=== PATIENT | female | born 1935 | race Caucasian/White ===

== ENCOUNTER 2019-10-31 12:53 | Outpatient (CLI) | payer MEDICARE, SELFPAY ==
--- NOTE | ~2019-10-31 | US_ITS ---
EXAMINATION: US carotid duplex BI DATE: 10/31/2019 14:41 INDICATION: Retinal artery occlusion. Carotid stenosis. TECHNIQUE: Grayscale, color Doppler, and pulsed Doppler images of the cervical carotid arteries were obtained. The degree of vessel stenosis is placed in one of the following categories: normal, <50%, 5 0-69%, >=70% but less than near-occlusion, near-occlusion, or total occlusion. Note that percent sten osis relative to normal distal artery lumen diameter is indirectly measured from velocity measurement s as described by Driss, et al. Radiology 2003; 229:340-346. Notes: Normal: Peak systolic velocity <125 centimeters/sec and no plaque <50%. Peak systolic velocity <125 ( EDV <40; ICA/CCA PSV ratio <2.0; used these factors only a tandem lesions or low cardiac output or co ntralateral disease) 50-69 %: PSV 125-230 (EDV 40-100; ratio 2-4) >= 70% but less than near occlusion: PSV greater than 230 (EDV > 100; ratio> 4.0) Near Occlusion: PSV that is variable; markedly narrowed lumen Occlusion: Absent flow on color/spectral Doppler and no lumen on josé scale. COMPARISON: None. FINDINGS: RIGHT: The right common carotid artery (CCA) peak systolic velocity (PSV) is 79 cm/s. The right internal car otid artery (ICA) PSV is 56 cm/s. The right ICA end-diastolic velocity (EDV) is 21 cm/s. The right IC A/CCA PSV ratio is 0.7. The external carotid artery (ECA) PSV is 63 cm/s. There is antegrade flow in the right vertebral artery. LEFT: The left CCA PSV is 67 cm/s. The left ICA PSV is 94 cm/s. The left ICA EDV is 26 cm/s. The left ICA/C CA PSV ratio is 1.4. The ECA PSV is 83 cm/s. There is antegrade flow in the left vertebral artery. IMPRESSION: 1. Less than 50% stenosis in the right internal carotid artery by sonographic criteria. 2. Less than 50% stenosis in the left internal carotid artery by sonographic criteria. Reviewed, dictated and finalized at location A. IMPRESSION: 1. Less than 50% stenosis in the right internal carotid artery by sonographic c kevon. 2. Less than 50% stenosis in the left internal carotid artery by sonographic adrianna orthman.
== END 2019-10-31 12:54 | disposition home or self-care (01) ==
PROVIDERS: Visit Provider Internal Medicine Cardiovascular Disease
DX: H34.211 Partial retinal artery occlusion, right eye (principal); H53.8 Other visual disturbances; I25.10 Atherosclerotic heart disease of native coronary artery without angina pectoris; E78.00 Pure hypercholesterolemia, unspecified; I65.23 Occlusion and stenosis of bilateral carotid arteries
CPT/HCPCS: 93880

== ENCOUNTER 2024-05-09 07:27 | Emergency (ER) | payer MEDICARE, SELFPAY ==
[2024-05-09] VITALS (17 sets, daily range): BP systolic 130–190; BP diastolic 67–129; PULSE 52–62; RESP 12–20; TEMP 36.7; O2SAT 99–100
--- NOTE | ~2024-05-09 | XR_ITS ---
EXAMINATION: XR chest 1V portable DATE: 05/09/2024 08:39 INDICATION: Palpitations. TECHNIQUE: A single frontal view of the chest was obtained. COMPARISON: Chest 2 views 02/10/2019 FINDINGS: There is no pneumonia, pleural effusion, or pneumothorax. Cardiomegaly is noted. 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 IMPRESSION: 1. Cardiomegaly. Reviewed, dictated and finalized at location A. IMPRESSION: 1. Cardiomegaly.
--- NOTE | 2024-05-09 07:32 | ECG_ITS ---
Test Date: 2024-05-09 07:35:45 Measurements Intervals [place] Rate: 58 P: 16 NV: 198 QRS: -32 QRSD: 88 T: 18 QT: 417 QTc: 410 Interpretive Statements SINUS BRADYCARDIA LEFT AXIS DEVIATION [QRS AXIS < -30] ABNORMAL ECG No previous ECG available for comparison Electronically Signed On 05-09-2024 13:59:23 CDT by Atilio Mckenzie M.D.
[2024-05-09 08:06] LABS: Basophils Percent Auto 0.7 % (0.2-1.2); Eosinophils Percent Auto 0.7 % (0-4.4); Hematocrit 39.9 % (37.0-47.0); Hemoglobin 12.6 g/dL (12.0-15.0); Immature Granulocyte Absolute 0.01 K/mm3 (0.00-0.031); Immature Granulocyte Percent A 0.2 % (0-0.5); Immature Platelet Fraction Pct 6.8 % (0.9-11.2); Lymphocytes Absolute Auto 0.86 K/mm3 (0.9-3.2); Lymphocytes Percent Auto 15.6 % (18.3-44.2); Mean Corpuscular HGB Conc 31.6 g/dl (32-36); Mean Corpuscular Hemoglobin 29.6 pg (26-34); Mean Corpuscular Volume 93.7 fl (80-100); Mean Platelet Volume 11.5 fl (7.4-10.4); Monocytes Absolute Auto 0.6 K/mm3 (0.1-0.6); Monocytes Percent Auto 10.2 % (2.6-8.5); Neutrophils Percent Auto 72.6 % (45.5-73.1); Platelet Count Result 132 k/mm3 (150-375); Red Blood Count 4.26 M/mm3 (4.2-5.4); Red Cell Distribution Width 14.8 % (11.5-14.5); White Blood Count 5.5 K/mm3 (4.5-10.0)
--- NOTE | 2024-05-09 08:06 | ED.ARRPALP ---
HPI - Arrhythmia/Palpitations General Chief Complaint: Arrhythmia/Palpitations Stated Complaint: palpitations Time Seen by Provider: 05/09/24 07:49 Source: patient, family (son) and RN notes reviewed Mode of arrival: EMS Limitations: no limitations History of Present Illness HPI narrative: Patient presents with report of palpitations. States she woke up around 3 or 3:30 and felt like she had a rapid heart rate. History of HTN (as well as gatric ulcer and Alzheimer). Her initial SBP was 160 then 166 then >200. Normally takes her lisinopril and metoprolol at 9:30am but took 1/2 dose of each with no relief in her hypertension. No dose changes recently. Denies any LE edema but does report R leg varicose veins; states she takes HCTZ when there is hot weather. She states before it felt like she was having fast beats but now they don't necessarily feel fast but she is hyperaware of her heart beating. Blood glucose for EMS was 84. They reported PACs on their radio report based on 12 lead. Her PCP is Destinee Ely. Many of her other physicians have retired recently so she is trying to establish with new ones. She has an upcoming appointment with cardiology. It was supposed to be in May but got rescheuled for July. Either Dr Llamas or Dr Soriano. Not on anticoagulation. Denies chest pain or shortness of breath. Earlier she felt a pressure at the back of her head but not currently and not described as painful. Occaisonally gets this with her allergies. She does report being under a lot of stressors in her family recently. States the rapid heart rate had never happened before except it has been occurring over the past week. Had previously worn a Holter/event monitor many years ago. WHen her symptoms were occuring, she felt like she could feel them when she put her finger in suprasternal notch. Had bypass in 1999 for PA and blockages and this runs on both paternal and maternal sides of family. Related Data Home Medications ?Medication ?Instructions ?Recorded ?Confirmed ?Last Taken ?Type cholecalciferol (vitamin D3) 25 25 mcg PO DAILY 11/19/21 04/13/24 Unknown History mcg (1,000 unit) tablet fexofenadine 60 mg tablet (Allergy 60 mg PO DAILY 11/19/21 04/13/24 Unknown History Relief (fexofenadine)) [id number] 250 mg-dha 90 1 cap PO DAILY 11/19/21 04/13/24 Unknown History mg-epa 160 gk-mamf-fabh-zeax capsule (Ocuvite Adult 50 Plus) simethicone 125 mg chewable tablet 125 mg PO TID PRN 11/19/21 04/13/24 Unknown History (Gas-X Extra Strength) ferrous sulfate 325 mg (65 mg 325 mg PO WEEKLY 09/08/22 04/13/24 Unknown History iron) tablet metoprolol tartrate 25 mg tablet 25 mg PO BID 11/26/22 04/13/24 Unknown History levothyroxine 50 mcg tablet 50 mcg PO DAILY 10/27/23 04/13/24 Unknown History Allergies Allergy/AdvReac Type Severity Reaction Status Date / Time erythromycin base Allergy Unknown unk Verified 04/13/24 14:33 ezetimibe Allergy Unknown unk Verified 04/13/24 14:33 simvastatin (Vytorin) Allergy Unknown body Verified 04/13/24 14:33 swelling and pain Sulfa (Sulfonamide Allergy Unknown unk Verified 04/13/24 14:33 Antibiotics) aspirin Allergy Unknown Verified 04/13/24 14:33 ibuprofen Allergy unk Verified 04/13/24 14:33 Dubois AdvReac Intermediate Confusion Uncoded 04/13/24 14:33 PMFSH Past Medical History Medical History Gastric ulcer Rapid heart rate Essential (primary) hypertension Memory loss Mixed hyperlipidemia Surgical History Surgical History Hx of tonsillectomy H/O: hysterectomy Hx of CABG 1999; for PA and blockages H/O hernia repair Hx of cholecystectomy H/O cataract extraction History of bowel resection Family History Family History Mother Family history of Alzheimer's disease, Onset Age: 92 Family history of cardiovascular disease Sibling Family history of cardiovascular disease Other Cerebrovascular accident Family history of coronary artery disease Hypertension No family history of malignant neoplasm Social History Social History Smoking status: Never smoker Alcohol intake: never Substance use: never Substance use type: does not use Lack of Transportation: No Lack of Food: Never True Current Housing: I Have Housing Concerned About Future Housing: No Difficulty Paying Gas/Electric Bills: No Difficulty Paying for Meds: No Currently Unemployed: No Education: Bachelor's Degree Difficulty w/ Childcare or Family Care: No Living arrangements: with family Additional living arrangements comments: son Occupation/Education: retired Exam Narrative: GENERAL: Well-appearing, well-nourished, and in no acute distress. HEAD: Normocephalic, atraumatic. EYES: Non injected, non icteric ENT: Nares clear, no rhinorrhea or epistaxis. NECK: Supple. CHEST: Speaking in full sentences. No respiratory distress. Lungs clear to auscultation bilaterally HEART: Bradycardic rate and rhythm. There does appear to be a slight delay between S1 and S2 but without appreciable murmur. No significant JVD but prominent heart beat in neck ABDOMEN: Soft, nondistended. EXTREMITIES: Normal range of motion. No lower extremity edema. SKIN: Warm, dry, no rash. NEURO: No focal deficits. Alert and oriented x3. PSYCH: Normal mood and affect. Course Vital Signs Vital signs: Vital Signs Temperature 98.0 F 05/09/24 07:33 Pulse Rate 58 L 05/09/24 07:33 Respiratory Rate 16 05/09/24 07:33 Blood Pressure 190/67 H 05/09/24 07:33 Pulse Oximetry 100 05/09/24 07:33 Oxygen Delivery Room Air 05/09/24 07:33 Temperature 98.0 F 05/09/24 07:33 Pulse Rate 57 L 05/09/24 10:45 Respiratory Rate 17 05/09/24 10:45 Blood Pressure 151/79 H 05/09/24 11:16 Pulse Oximetry 100 05/09/24 10:31 Oxygen Delivery Room Air 05/09/24 07:33 MDM - Arrhythmia/Palpitations MDM Narrative Medical decision making narrative: Patient presents with report of palpitations/rapid heart rate. In the emergency department she is afebrile with vital signs notable for hypertension as well as bradycardia. She has mild thrombocytopenia. EMS had noted frequent PACs on their radio report, no EKG/12 lead transmitted her this is not present on EKG your on monitoring analyst on my bedside assessment. Rest of work up generally unremarkable. Cardiology personnel were contacted to equip patient with an event monitor for 7 days to identify if ping able to be identified. Discharged in stable condition and advised to follow up and given return precautions. She is provided cardiology referral. Differential Diagnosis Differential diagnosis: Likely palpitations, anxiety, sinus tachycardia, artial fibrillation, artial flutter, ventricular premature beats, supraventricular tachycardia, ventricular tachycardia and other (aortic stenosis; psychogenic; PACs; electrolyte abnormalities) Lab Data Attestation: I reviewed the patient's lab results. 05/09/24 07:58 05/09/24 07:58 Labs: Lab Results 05/09/24 Range/Units 07:58 WBC 5.5 (4.5-10.0) K/mm3 RBC 4.26 (4.2-5.4) M/mm3 Hgb 12.6 (12.0-15.0) g/dL Hct 39.9 (37.0-47.0) % MCV 93.7 (80-100) fl MCH 29.6 (26-34) pg MCHC 31.6 L (32-36) g/dl RDW 14.8 H (11.5-14.5) % Plt Count 132 L (150-375) k/mm3 MPV 11.5 H (7.4-10.4) fl Immature Gran % (Auto) 0.2 (0-0.5) % Neut % (Auto) 72.6 (45.5-73.1) % Lymph % (Auto) 15.6 L (18.3-44.2) % Prentiss % (Auto) 10.2 H (2.6-8.5) % Eos % (Auto) 0.7 (0-4.4) % Baso % (Auto) 0.7 (0.2-1.2) % Lymph # (Auto) 0.86 L (0.9-3.2) K/mm3 Prentiss # (Auto) 0.6 (0.1-0.6) K/mm3 Eos # (Auto) 0.0 (0-0.3) K/mm3 Baso # (Auto) 0.0 (0.0-0.1) K/mm3 Abs Immat Gran (auto) 0.01 (0.00-0.031) K/mm3 Absolute Neuts (auto) 4.0 (1.3-6.7) K/mm3 Absolute Nucleated RBC 0.000 (0.0-0.012) K/mm3 Nucleated RBC % 0.0 (0.0-0.2) % % Immature Plt Fraction 6.8 (0.9-11.2) % PT 14.3 (11.1-14.7) Seconds INR 1.1 APTT 28.5 (22.3-36.8) Seconds Sodium 139 (137-145) mmol/L Potassium 3.9 (3.4-5.0) mmol/L Chloride 103 (98-107) mmol/L Carbon Dioxide 29 (22-30) mmol/L Anion Gap 7 (4-12) mmol/L BUN 19 H (7-17) mg/dL Creatinine 0.54 L (0.7-1.0) mg/dL Estim Creat Clear Calc 49 ml/min Estimated GFR > 60 (59 - ) Glucose 107 (65-110) mg/dL Calcium 8.9 (8.4-10.2) mg/dL Magnesium 1.9 (1.6-2.3) mg/dL Total Bilirubin 0.8 (0.2-1.3) mg/dL AST 28 (14-36) U/L ALT 21 (6-35) U/L Alkaline Phosphatase 91 (38-126) U/L Total Protein 7.0 (6.3-8.2) g/dL Albumin 3.7 (3.5-5.1) g/dL Lipase 16 L (23-300) U/L Imaging Data Attestation: I personally reviewed and interpreted this imaging study as follows: My impression: STernotomy wires. Cardiomegaly. Prominant aortic notch/knob Radiologist's impression: Impressions Chest X-Ray 05/09/24 08:40 IMPRESSION: 1. Cardiomegaly. ECG Data EKG #1: Attestation: I personally reviewed and interpreted this ECG as follows: ECG completion date: 05/09/24 ECG completion time: 07:35 Interpretation: Sinus bradycardia at a rate of 58 beats per minute. GA interval 198. QRS 88. QT/QTC 417/413. This is a borderline prolonged GA interval although technically less than 200 milliseconds some normal. Good R-wave progression across the precordial leads. T-wave inversion isolated to lead 3 but otherwise upright in normal in contiguous inferior leads 2 and AVF. T-wave flattening in V3 but upright and normal throughout the rest of the precordial leads V2 V4 V5 and V6. She has left axis deviation with QRS positive in 1 and negative in 2 3 and AVF. Discharge Plan Discharge Clinical Impression: Heart palpitations, Thrombocytopenia, Cardiomegaly Patient Disposition: Home, Self-Care Condition: Stable Instructions: Antibiotic Form, Heart Palpitations (DC), Thrombocytopenia (ED), Premature Atrial Contractions (ED) Additional Instructions: No identifiable etiology for your symptoms was determined in the emergency department. Likely discussed, EMS had been noted seeing PACs (premature atrial contractions) on their cardiac monitoring but this was not seen while you in the emergency department and you were otherwise asymptomatic during this time. Nevertheless, you are being equipped with an event monitor should these episodes happen again. Follow the instructions that the cardiology nurse/staff member has given you. You can follow-up with the acting manager that you are assigned to based on this or, alternatively, the name of 1 is listed below. Return to the emergency department with any new or worsening symptoms. In the interim take all medications as prescribed. Patient Language: Albanian Prescriptions: No Action ferrous sulfate 325 mg (65 mg iron) tablet 325 mg PO WEEKLY lisinopril 20 mg tablet See Rx Instructions .ROUTE .COMPLEX Qty: 180 1RF Dose Instruction: TAKE 1 TABLET BY MOUTH TWICE DAILY Rx Instructions: TAKE 1 TABLET BY MOUTH TWICE DAILY metoprolol tartrate 25 mg tablet 25 mg PO BID Patient Comments: prescribed by cardiology - takes as needed when she feels a rapid heart rate levothyroxine 75 mcg tablet 75 mcg PO DAILY Qty: 90 1RF levothyroxine 50 mcg tablet 50 mcg PO DAILY Ocuvite Adult 50 Plus 250 mg (90 mg-160 mg) capsule 1 cap PO DAILY fexofenadine [Allergy Relief (fexofenadine)] 60 mg tablet 60 mg PO DAILY cholecalciferol (vitamin D3) 25 mcg (1,000 unit) tablet 25 mcg PO DAILY simethicone [Gas-X Extra Strength] 125 mg tablet,chewable 125 mg PO TID PRN atorvastatin 40 mg tablet 40 mg PO DAILY Qty: 90 1RF pantoprazole 40 mg tablet,delayed release (DR/EC) 40 mg PO QAM PRN (Reason: GERD) Qty: 90 1RF Follow-up/Referrals: Leonel Llamas MD [Physician] - (Cardiology) Destinee Mckeon BANKING SERVICES ADVISOR-C [Primary Care Provider] - Time of Disposition: 09:55
--- OUTSIDE RECORDS SUMMARY | 2024-05-09 08:08 | XMS_ITS | Referral Summary ---
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 Mechanic Name Role Phone Mikenain Christina Ng DO Primary Care Provider [phone]- [phone] Allergies Active Allergy Reactions Criticality Noted Date Comments Aspirin Other (See comments) Low 11/09/2019 H/o ulcers Erythromycin Ezetimibe Hydrocodone-Acetaminoph en Ibuprofen Other (See comments) Low 11/09/2019 H/o ulcer Iodine Other (See comments) Reaction: OTHER REACTION, Milk Other (See comments) Medium Reaction: ABDOMINAL PAIN, Simvastatin Sulfa (Sulfonamide Antibiotics) Hives Medium Medications levothyroxine (SYNTHROID) 50 mcg tablet Take 1 tablet (50 mcg total) by mouth every other day Active fexofenadine (CHRISTIAN) 60 mg tablet Take 1 tablet (60 mg total) by mouth 2 (two) times a day Active vit A/C/E ac/ZnOx/cupric oxide (EYE VITAMIN AND MINERALS ORAL) Take by mouth A ctive cholecalciferol (VITAMIN D-3) 2000 unit capsule 1 capsule (2,000 Units total) Active hydroCHLOROthiaz flex (HYDRODIURIL) 12.5 mg tablet Take 1 tablet (12.5 mg total) by mouth daily as needed 1 Active atorvastatin (LIPITOR) 40 mg tablet Take 1 tablet (40 mg total) by mouth daily 3 Active levothyroxine (SYNTHROID) 75 mcg tablet Take 1 tablet (75 mcg total) by mouth every other day Active pantoprazole DR (PROTONIX) 40 mg EC tablet Take 1 tablet (40 mg total) by mouth as needed Active lisinopriL (PRINIVIL,ZESTRI L) 20 mg tabletIndication s:Essential hypertension Take 1 tablet (20 mg total) by mouth daily 90 tablet 3 4 Active Additional Information Patient taking differently: 40 mgoral Daily, Reported on 09/29/2023 metoprolol tartrate (LOPRESSOR) 25 mg immediate release tabletIndication s:Palpitations Take 1 tablet (25 mg total) by mouth 2 (two) times a day as needed (fast heart beats) 180 tablet 2 5 Active Active Problems Problem Noted Date Diagnosed Date PVC's (premature ventricular contractions) 01/11 Palpitations 01/06/2023 Chest discomfort 11/21/2020 H/O: GI bleed 11/21/2020 Gastrointestinal hemorrhage associated with paola ze ulcer 11/09/2019 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 2019 Coronary artery disease invo lving [place] coronary artery of [place] heart without angina pectoris 09/21/2017 Hx of CABG 09/21/2017 Hypercholesteremia 09/21/2017 Essential hypertension 09/21/2017 Diastolic dysfunction 09/21/2017 Nonrheumatic tricuspid valve regurgitation 09/21 Memory loss 09/21/2017 Biliary calculus 11/29/2009 Immunizations Immunization Administration Dates Next Due Moderna SARS-CoV-2 Monovalent Vaccination (12+ Y RS) 05/02/2020,04/04/2020 Social History Tobacco Use Types Packs/Day Years Used Date Smoking Tobacco: Never Smokeless Tobacco: Never Alcohol Use Standard Drinks/Week Comments No 0 (1 standard drink = 0.6 oz pur e alcohol) Comments Unknown Sex and Gender Information Value Date Recorded Sex Assigned at Not on file Legal Sex Female 1:04 PM 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 COORDINATOR Gender Identity Female 06/16/2020 6:00 PM CDT Sexual Orientation Straight 11/17/2020 8: 51 AM CDT Last Filed Vital Signs Vital Sign Reading Time Taken Comments Blood Pressure 150/74 09/29/2023 3:42 PM CDT Pulse 58 09/29/2023 3:08 PM CDT Temperature - - Respiratory Rate - - Oxygen Saturation 99% 09/29/2023 3:08 PM CDT Inhaled Oxygen Concentration - - Weight 48.5 kg (107 lb) 09/29/2023 3:08 PM CDT Height 160 cm (5' 3 ) 09/29/2023 3:08 PM CDT Body Mass Index 18.95 09/29/2023 3:08 PM CDT Plan of Treatment Not on file Insurance MEDICARE [facility] MEDICARE [facility] Care Teams Auto Heater Mechanic Relationship Specialty Start Date End Date Christina Chew DO PCP - General Family Medicine 12/19/21
--- OUTSIDE RECORDS SUMMARY | 2024-05-09 08:08 | XMS_ITS | Clinical Summary ---
Author Organization [facility] [place] [address] Address [address] [place] [address] Care Team Providers Care Baggage Agent Supervisor Name Role Phone Mikenain Christina Crespoe Primary Care Provider [phone]- [phone] Allergies Active Allergy Reactions Criticality Noted Date [...] eye 2019 Coronary artery disease invo lving [place] coronary artery of [place] heart without angina pectoris 09/21/2017 Hx of CABG 09/21/2017 Hypercholesteremia 09/21/2017 Essential hypertension 09/21/2017 Diastolic dysfunction 09/21/2017 Nonrheumatic tricuspid valve regurgitation 09/21 Memory loss 09/21/2017 Biliary calculus 11/29/2009 Immunizations Immunization Administration Dates Next Due Moderna SARS-CoV-2 Monovalent Vaccination (12+ Y RS) 05/02/2020,04/04/2020 Surgical History Surgery Date Site/Laterality Comments TONSILLECTOMY Tonsillectomy INGUINAL HERNIA REPAIR Right Inguinal Hernia Repair HYSTERECTOMY Hysterectomy CHOLECYSTECTOMY Cholecystectomy CATARACT EXTRACTION Cataract extraction OTHER SURGICAL HISTORY Hysterectomy, total, removal of both tubes and ovaries CORONARY ARTERY BYPASS GRAFT 02/09/1999 - 02/09/2000 Coronary Artery Bypass Graft CORONARY ARTERY BYPASS GRAFT CABG CATARACT EXTRACTION COLON SURGERY SMALL INTESTINE SURGERY Medical History Medical History Date Comments Hx Other Medical Macular Degener ation Hx Other Medical Bilateral Catar acts Hyperlipidemia Hyperlipidemia; Comments: [facility] 09/02/2013 - Hypertension Hypertension Hx Other Medical hypothyroidism; Comments: [facility] 09/02/2013 - Chronic coronary artery disease Coronary artery disease Hx Other Medical macular degener ation; Comments: [facility] 09/02/2013 - Osteoarthritis Osteoarthritis; Comments: [facility] 09/02/2013 - Hx Other Medical hernia repair; Comments: [facility] 09/02/2013 - Benign positional vertigo Cataract Macular Degeneration both eyes Heart disease 2000 or before Thyroid disease 2020 change Peptic ulceration Family History Medical History Relation Name Comments Coronary artery disease Brother 3 Dimitry nary Artery Bypass Graft; Alzheimer's disease Brother 4 THC Alzheime r's Disease; Heart disease Brother 4 THC Coronary artery disease Brother 5 Dimitry nary artery disease; Arthritis Father WTC Heart disease Father WTC Stroke Father WT Stroke; /Stroke ; Alzheimer's disease Maternal Grandfather [facility] Alzheimer's disease Mother [facility] Alzheime r's Disease; Heart attack Mother [facility] Myocardial Infarction; /Myocardial infarction; Learning disabilities Mother's Brother Jose M Alzheimer's disease Mother's Sister 4 aunts at east 4 cousins Relation Name Status Comments Brother 1 Alive Brother 2 Alive Brother 3 Brother 4 THC Brother 5 Father WTC Alive Maternal Grandfather [facility] Mother [facility] Alive Mother's Brother Jose M Mother's Sister 4 aunts at least 4 cousins Social History Tobacco Use Types Packs/Day Years Used Date Smoking Tobacco: Never Smokeless Tobacco: Never Alcohol Use Standard Drinks/Week Comments No 0 (1 standard drink = 0.6 oz pur e alcohol) Comments Unknown Sex and Gender Information Value Date Recorded Sex Assigned at Not on file Legal Sex Female 1:04 PM 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 Gender Identity Female 06/16/2020 6:00 PM CDT Sexual Orientation Straight 11/17/2020 8: 51 AM CDT Obstetrics History Last Filed Vital Signs Vital Sign Reading [...] 09/29/2023 3:08 PM CDT Plan of Treatment Health Maintenance Due Date Last Done Comments Depression Screening 1936 Fall Risk Assessment 1936 DTaP/Tdap/Td Vaccine (1 - Tdap) 05/07/1947 Hepatitis B Screening 1954 Pneumococcal vaccine 65+ (1 of 1 - PCV) 1986 Zoster Vaccine (1 of 2) 1986 Well Visit 65+ 2001 Covid-19 Vaccine (3 - season) 2023, 04/04/2020 Influenza Vaccine (#1) 2023 Insurance MEDICARE [facility] MEDICARE [facility] Care Teams Baggage Agent Supervisor Relationship Specialty Start Date End Date Christina Chew DO PCP - General Family Medicine 12/19/21
--- OUTSIDE RECORDS SUMMARY | 2024-05-09 08:08 | XMS_ITS | Continuity of Care Document ---
Author Organization [facility] Address [address] [place] [address] Phone Care Team Providers Care Cup Trimming Machine Operator Name Role Phone Jordan Patel Unavailable Unavailable Procedures Procedure Date Eye Exam & Treatment IOLMaster Eye Exam & Treatment No Script Refraction Eye Exam & Treatment Refraction Advance Directives Directive Yes / No Effective Date File Name No Information Encounters Encounter Description Practice Location Reason(s) For Visit Diagnoses Date Provider Providers Copied on Encounter [facility], [address], [place], [place], [id number], [place] tel:[phone] [facility] No Information Oct-0 6-201 0 Jorge Ortega. [address] , [address], [place], [place], [facility], . tel:[phone] Referring Provider: Jordan Christensen, [address], [place], [place], [facility]. tel:[phone] [facility], [address], [place], [place], [id number], [place] tel:[phone] [facility] No Information Oct-0 7-200 9 Latasha Neptali. [address] [facility] [address], [place], [place], [facility], [place]. tel:[phone] [facility], [address] [place] [address] [address], [place], [place], [id number], [place] tel:[phone] [facility] No Information 3-200 8 Lat[facility]adahil. [address] [facility] [address], [address], [place]. tel:[phone] Family History Family Member Type Diagnosis Age At Onset No Information Payers Payer name Insurance type Covered democrat ID Authoriza tion(s) Medicare [facility] [id number] Social History Type Description Quantity Date Captured Comments Sex Female Smoking Status No Information Chief Complaint And Reason For Visit No Information Reason For Referral Reason For Referral No Information History Of Present Illness Encounter Date Complaint History Of Prese nt Illness No Information Functional Status Date Functional Assessmen t No Information Instructions Date Instruction Additional Infor mation No Information Assessments Type Assessment Date No Information Patient Care Teams Name Effective Dates (start - stop) Status Members No Information
[2024-05-09 08:18] LABS: Alanine Aminotransferase 21 U/L (6-35); Albumin Level 3.7 g/dL (3.5-5.1); Alkaline Phosphatase 91 U/L (38-126); Anion Gap 7 mmol/L (4-12); Aspartate Amino Transferase 28 U/L (14-36); Bilirubin,Total 0.8 mg/dL (0.2-1.3); Blood Urea Nitrogen 19 mg/dL (7-17); Calcium 8.9 mg/dL (8.4-10.2); Carbon Dioxide 29 mmol/L (22-30); Chloride 103 mmol/L (98-107); Estimated CRCL calculation 49 ml/min; Estimated Glomerular Filt Rate > 60; Glucose 107 mg/dL (65-110); Lipase 16 U/L (23-300); Potassium 3.9 mmol/L (3.4-5.0); Sodium 139 mmol/L (137-145)
[2024-05-09 08:43] LABS: INR 1.1; Prothrombin Time 14.3 Seconds (11.1-14.7)
[2024-05-09 08:45] LABS: Partial Thromboplastin Time 28.5 Seconds (22.3-36.8)
[2024-05-09 09:04] LABS: Magnesium 1.9 mg/dL (1.6-2.3)
== END 2024-05-09 11:37 | disposition home or self-care (01) ==
PROVIDERS: Emergency Provider Student in an Organized Health Care Education/Training Program; PCP Nurse Practitioner
DX: R00.2 Palpitations (principal); I51.7 Cardiomegaly; D69.6 Thrombocytopenia, unspecified; I10 Essential (primary) hypertension; E78.2 Mixed hyperlipidemia; Z95.1 Presence of aortocoronary bypass graft; Z90.710 Acquired absence of both cervix and uterus; Z90.49 Acquired absence of other specified parts of digestive tract; Z98.49 Cataract extraction status, unspecified eye
CPT/HCPCS: 36415; 71045; 80053; 83690; 83735; 85025; 85055; 85610; 85730; 93005; 93242; 99284